=== PATIENT | female | born 1990 | race Caucasian/White ===

== ENCOUNTER 2023-08-14 00:06 | Emergency (ER) | payer OTHER ==
[2023-08-14 00:13] VITALS: BP 149/97; PULSE 75; RESP 17; TEMP 98.6; BMI 24.7
[2023-08-14] MEDS ORDERED: ONDANSETRON 4 MG/2 ML VIAL ONE (00:48)
[2023-08-14] MEDS ORDERED: KETOROLAC TROMETHAMINE 30 MG/1 ML VIAL ONE (00:48)
[2023-08-14] MEDS: morphine CARPU-JECT 2 MG/1 ML DISP.SYRIN IVPUSH ONE (01:04)
[2023-08-14] MEDS: ONDANSETRON 4 MG/2 ML VIAL IVPB ONE (01:05)
[2023-08-14] MEDS: SODIUM CHLORIDE 1,000 ML IV ONE (01:05)
[2023-08-14] MEDS: KETOROLAC TROMETHAMINE 30 MG/1 ML VIAL IVPUSH ONE (01:05)
[2023-08-14 01:29] LABS: HEMATOCRIT 38.8 % (32.4-45.2); HEMOGLOBIN 13.1 GM/dL (10.7-15.3); MCH 31.3 pg (25.7-33.7); MCHC 33.8 g/dl (32.0-36.0); MEAN CELL VOLUME 92.5 fl (80-96); MEAN PLT VOLUME 9.4 fl (7.5-11.1); PLATELET COUNT 157 10^3/uL (134-434); RBC 4.19 M/mm3 (3.60-5.2); WHITE BLOOD COUNT 7.5 K/mm3 (4.0-10.0)
[2023-08-14 01:40] LABS: POTASSIUM 3.1 mmol/L (3.5-5.1)
[2023-08-14 01:43] LABS: BLOOD UREA NITROGEN 14.1 mg/dL (7-18); CALCIUM 8.6 mg/dL (8.5-10.1)
[2023-08-14 01:44] LABS: ALBUMIN 3.9 g/dl (3.4-5.0)
[2023-08-14 01:47] LABS: CREATININE 0.8 mg/dL (0.55-1.3)
[2023-08-14 01:49] LABS: BILIRUBIN,TOTAL 0.6 mg/dL (0.2-1); EPI CELLS 17 /uL (0-25.1); HYALINE CASTS 2 /uL (0-3.1); PH,URINE 5.5 (5.0-8.0); URINE APPEARANCE CLOUDY; URINE BACTERIA 124 /uL (0-1359); URINE BILIRUBIN NEGATIVE (NEGATIVE); URINE COLOR DK YELLOW; URINE GLUCOSE (UA) NEGATIVE (NEGATIVE); URINE KETONE TRACE (NEGATIVE); URINE LEUK ESTERASE NEGATIVE (NEGATIVE); URINE NITRITE NEGATIVE (NEGATIVE); URINE PROTEIN 1+ (NEGATIVE); URINE RBC 1 /uL (0-23.9); URINE WBC 51 /uL (0-25.8)
[2023-08-14 02:55] LABS: URINE CRYSTALS MODERATE /hpf
[2023-08-14 05:08] LABS: HCG,QUALITATIVE URINE NEGATIVE
== END 2023-08-14 04:20 | disposition home or self-care (01) ==
LOC: FER 00:06
PROC: 3E0333Z Introduction of Anti-inflammatory into Peripheral Vein, Percutaneous Approach (ICD-10-PCS; principal; 2023-08-14)
PROC: 3E033GC Introduction of Other Therapeutic Substance into Peripheral Vein, Percutaneous Approach (ICD-10-PCS; 2023-08-14)
PROC: 3E033GC Introduction of Other Therapeutic Substance into Peripheral Vein, Percutaneous Approach (ICD-10-PCS; 2023-08-14)
PROC: 3E0337Z Introduction of Electrolytic and Water Balance Substance into Peripheral Vein, Percutaneous Approach (ICD-10-PCS; 2023-08-14)
DX: R10.30 Lower abdominal pain, unspecified (principal); N83.209 Unspecified ovarian cyst, unspecified side; R11.0 Nausea
CPT/HCPCS: 36415; 74177-TC; 80053; 81003; 81025; 84703; 85027; 87086; 99285-25